=== PATIENT | male | born 1950 | race Caucasian/White ===

== ENCOUNTER 2017-12-04 14:02 | Observation (INO) | payer OTHER ==
[~2017-12-04] VITALS: Ht 180.3 cm; Wt 89.7 kg
--- OUTSIDE RECORDS SUMMARY | ~2017-12-04 | XMS | Clinical Summary ---
Demographics + + + | Address | [address] | | | [place] [address] | + + + | Home Phone | | + + + | Preferred Language | Unknown | + + + | Marital Status | | + + + | Oriental Orthodox Affiliation | Unknown | + + + | Race | Unknown | + + + | Ethnic Group | Unknown | + + + Author + + + | Author | [facility] | | | and [place] | + + + | Organization | [facility] | | | and [place] | [...] Team Providers + +------+ + | Care Cloud Engineer Name | Role | Phone | + [...]
--- OUTSIDE RECORDS SUMMARY | ~2017-12-04 | XMS | Clinical Summary ---
Demographics + + + | Address | [address] | | | [place] [address] | + + + | Home Phone | | + + + | Preferred Language | Unknown | + + + | Marital Status | | + + + | Mandaen Affiliation | Unknown | + + + | Race | Unknown | + + + | Ethnic Group | Unknown | + + + Author + + + | Author | [facility] | + + + | Organization | [facility] | + + + | Address | Unknown | + + + | Phone | Unavailable | + + + Support + + + + + | Name | Relationship | Address | Phone | + + + + + | Vanesa Springer | ECON | [address] | | | | | [place] [address] | | + + + + + Care Team Providers + +------+ + | Care Freight Coordinator Name | Role | Phone | + +------+ + | Mayra Merrill MD | PP | | + +------+ + Allergies + + + + + + | Active Allergy | Reactions | Severity | Noted | Comments | | | | | Date | | + + + + + + | Codeine | Other (See Comments) | Medium | 06/15/20 | Pt states makes | | | | | 17 | him feel flushed and | | | | | | warm | + + + + + + Current Medications + + +-------+---------+------+------+-------+ | Prescription | Sig. | Disp. | Refills | Star | End | Statu | | | | | | t | Date | s | | | | | | Date | | | + + +-------+---------+------+------+-------+ | | Inhale 2 puffs into | | | | | Activ | | budesonide-formotero | the lungs 2 (two) | | | | | e | | l (SYMBICORT) 80-4.5 | times daily. | | | | | | | MCG/ACT | | | | | | | | inhalerIndications: | | | | | | | | Chronic Obstructive | | | | | | | | Pulmonary Disease | | | | | | | + + +-------+---------+------+------+-------+ | traZODone | Take 100 mg by mouth | | | | | Activ | | (DESYREL) 100 MG | nightly. | | | | | e | | tabletIndications: | | | | | | | | PTSD/sleep | | | | | | | + + +-------+---------+------+------+-------+ | sertraline | Take 100 mg by mouth | | | | | Activ | | (ZOLOFT) 100 MG | nightly. | | | | | e | | tabletIndications: | | | | | | | | Posttraumatic Stress | | | | | | | | Disorder | | | | | | | + + +-------+---------+------+------+-------+ | diphenhydrAMINE | Take 50 mg by mouth | | | | | Activ | | (BENADRYL) 50 MG | nightly. | | | | | e | | capsule | | | | | | | + + +-------+---------+------+------+-------+ | divalproex | Take 500 mg by mouth | | | | | Activ | | (DEPAKOTE) 500 MG 24 | nightly. | | | | | e | | hr tablet | | | | | | | + + +-------+---------+------+------+-------+ Active Problems + + + | Problem | Noted Date | + + + | Subcutaneous emphysema (HCC) | 06/24/2017 | + + + | Change in mental status | 06/21/2017 | + + + | COPD exacerbation (HCC) | 06/21/2017 | + + + | Acute respiratory failure with hypoxia (HCC) | 06/16/2017 | + + + | Panlobular emphysema (HCC) | 06/15/2017 | + + + | Cigarette smoker | 06/15/2017 | + + + | Pyrexia of unknown origin following delivery | 06/15/2017 | + + + | PTSD (post-traumatic stress disorder) | 06/15/2017 | + + + | Subcutaneous emphysema (HCC) | 06/15/2017 | + + + | Contusion of flank and back, subsequent encounter | 06/15/2017 | + + + | Closed fracture of multiple ribs | 06/15/2017 | + + + Resolved Problems + + + + | Problem | Noted | Resolved | | | Date | Date | + + + + | Traumatic pneumothorax | 06/15/20 | | | | 17 | 7 | + + + + | Chest tube in place | 06/15/20 | | | | 17 | 7 | + + + + Immunizations + + + + | Name | Dates Previously Given | Next Due | + + + + | Influenza, | 06/16/2017 | | | Injectable, | | | | Quadrivalent, | | | | Preservative Free | | | + + + + Social History + +-------+ +--------+ + | Tobacco Use | Types | Packs/Day | Years | Date | | | | | Used | | + +-------+ +--------+ + | Former Smoker | | 1.5 | 49 | Quit: 06/12/2017 | + +-------+ +--------+ + + +---+---+ + | Smokeless Tobacco: | | | Quit: | | Former User | | | 06/12/20 | | | | | 17 | + +---+---+ + + + | Tobacco Cessation: Ready to Quit: No; Counseling Given: Yes | + + + + +---------+ + | Alcohol Use | Drinks/We | oz/Week | Comments | | | ek | | | + + +---------+ + | Yes | | | once a while | + + +---------+ + + + + | Sex Assigned at | Date Recorded | | | | + + + | Not on file | | + + + Last Filed Vital Signs + + + + | Vital Sign | Reading | Time Taken | + + + + | Blood Pressure | 121/61 | 07/01/2017 8:48 AM PST | + + + + | Pulse | 75 | 07/01/2017 8:48 AM PST | + + + + | Temperature | 36.3 C (97.4 F) | 07/01/2017 8:48 AM PST | + + + + | Respiratory Rate | 16 | 2017 8:00 AM PST | + + + + | Oxygen Saturation | 96% | 07/01/2017 8:48 AM PST | + + + + | Inhaled Oxygen | - | - | | Concentration | | | + + + + | Weight | 86 kg (189 lb 8 oz) | 07/01/2017 8:48 AM PST | + + + + | Height | 182.9 cm (6') | 07/01/2017 8:48 AM PST | + + + + | Body Mass Index | 25.7 | 07/01/2017 8:48 AM PST | + + + + Plan of Treatment + + + + + | Health Maintenance | Due Date | Last Done | Comments | + + + + + | Vaccine: | | | | | Dtap/Tdap/Td (1 - | 8 | | | | Tdap) | | | | + + + + + | Colon Cancer | | | | | Screening | 9 | | | | (Colonoscopy) | | | | + + + + + | Vaccine: | | | | | Pneumococcal 65+ | 4 | | | | Low/Medium Risk (1 | | | | | of 2 - PCV13) | | | | + + + + + | Vaccine: Influenza | Completed | 06/16/2017 | | + + + + + Results Not on filefrom Last 3 Months Insurance + +--------+ +------+ + + | Payer | Benefi | Subscriber | Type | Phone | Address | | | t Plan | ID | | | | | | / | | | | | | | Group | | | | | + +--------+ +------+ + + | [employer] | V[employer] | xxxxxxxxx | | [phone] [employer] [id number] | | ADMINISTRATION | [place] | | [phone] | | | [address] | | | | [address] [place] | | | [place] | | | [phone] | | | ON | | | | | + +--------+ +------+ + + + +--------+ +--------+ + + | Guarantor Name | Accoun | Relation to | Date | Phone | Billing Address | | | t Type | Patient | of | | | | | | | | | | + +--------+ +--------+ + + | GUANACO SPRINGER | Tamara | Self | [birth year] | Home: | [address] | | | ns | | 1950 | [phone] | [place] | | | Admini | | | [phone] | | | strati | | | | | | | on | | | | | + +--------+ +--------+ + +"
--- OUTSIDE RECORDS SUMMARY | ~2017-12-04 | XMS | Clinical Summary ---
Demographics + + + | Address | [address] | | | [place] [address] | + + + | Home Phone | | + + + | Preferred Language | Unknown | + + + | Marital Status | | + + + | Samaritan Affiliation | Unknown | + + + | Race | Unknown | + + + | Ethnic Group | Unknown | + + + Author + + + | Author | [facility] | | | and [place] | + + + | Organization | [facility] | | | and [place] [...] Team Providers + +------+ + | Care Actuarial Science Professor Name | Role | Phone | + [...]
--- OUTSIDE RECORDS SUMMARY | ~2017-12-04 | XMS | Clinical Summary ---
Demographics + + + | Address | [address] | | | [place] [address] | + + + | Home Phone | | + + + | Preferred Language | Unknown | + + + | Marital Status | | + + + | Restoration Affiliation | Unknown | + + + | Race | Unknown | + + + | Ethnic Group | Unknown | + + + Author + + + | Author | [facility] | + + + | Organization | [facility] | + + + | Address | Unknown | + + + | Phone | Unavailable | + + + Support + + + + + | Name | Relationship | Address | Phone | + + + + + | Vanesa Springer | ECON | [address] | | | | | [place] [address] | | + + + + + Care Team Providers + +------+ + | Care Retirement Assistant Name | Role | Phone | + [...] | | [place] | | | | [address] | | | ON | | | [...] | Self | [birth year] | Home: | [address] | | | ns | | 1950 | [phone] | [place] | | | Admin[place] | | | [phone] | [phone] | | | strati | | | | | | | on | | | | | + +--------+ +--------+ + +"
--- OUTSIDE RECORDS SUMMARY | ~2017-12-04 | XMS | Clinical Summary ---
Demographics + + + | Address | [address] | | | [place] [address] | + + + | Home Phone | | + + + | Preferred Language | Unknown | + + + | Marital Status | Single | + + + | Jew Affiliation | Unknown | + + + [...] Team Providers + +------+ + | Care Preparation Room Worker Name | Role | Phone | + +------+ + | Unknown | PP | Unavailable | + +------+ + Source Comments ELO is fully live on both [facility] Ambulatory and [facility] InPatient.[facility] Allergies Not on File Current Medications Not [...]
--- OUTSIDE RECORDS SUMMARY | ~2017-12-04 | XMS | Clinical Summary ---
Demographics + + + | Address | [address] | | | [place] [address] | + + + | Home Phone | | + + + | Preferred Language | Unknown | + + + | Marital Status | Single | + + + | Advent Affiliation | Unknown | + + + [...] Team Providers + +------+ + | Care Outside Collector Name | Role | Phone | + +------+ + | Unknown | PP | Unavailable | + +------+ + Source Comments ELO is fully live on both [facility] Ambulatory and [facility] InPatient.[facility] Allergies Not on File Current [...]
[2017-12-04] MEDS ORDERED: DEPAKOTE500 MG PO (14:22)
[2017-12-04] MEDS ORDERED: SYMBICORT 80-10.2 GM INH (14:22)
[2017-12-04] MEDS ORDERED: DIPHENHYDRAMINE50 M1 PO (14:23)
[2017-12-04] MEDS ORDERED: TRAZODONE HCL100 MG PO (14:23)
[2017-12-04] MEDS ORDERED: MELOXICAM15 MG PO (14:24)
[2017-12-04] MEDS ORDERED: SERTRALINE HCL100 MG PO (14:24)
--- OUTSIDE RECORDS SUMMARY | 2017-12-04 15:10 | XMS | Clinical Summary ---
Demographics + + + | Address | [address] | | | [place] [address] | + + + | Home Phone | | + + + | Preferred Language | Unknown | + + + | Marital Status | Single | + + + | Samaritan Affiliation | Unknown | + + + | Race | Unknown | + + + | Ethnic Group | Other Race | + + + Author + + + | Author | NON REVENUE LOCATIONS | + + + | Organization | NON REVENUE LOCATIONS | + + + | Address | Unknown | + + + | Phone | Unavailable | + + + Care Team Providers + +------+ + | Care Woods Warden Name | Role | Phone | + +------+ + | Unknown | PP | Unavailable | + +------+ + Source Comments ELO is fully live on both [facility] Ambulatory and [facility] InPatient.[facility] Allergies Not on File Current Medications Not on file Active Problems Not on file Social History + +-------+ +--------+------+ | Tobacco Use | Types | Packs/Day | Years | Date | | | | | Used | | + +-------+ +--------+------+ | Never Assessed | | | | | + +-------+ +--------+------+ + + + | Sex Assigned at | Date Recorded | | | | + + + | Not on file | | + + + Plan of Treatment + + + + + | Health Maintenance | Due Date | Last Done | Comments | + + + + + | INFLUENZA VACCINE | | | | | (FLU SHOT) | 8 | | | + + + + + Results Not on filefrom Last 3 Months"
--- OUTSIDE RECORDS SUMMARY | 2017-12-04 15:10 | XMS | Clinical Summary ---
Demographics + + + | Address | [address] | | | [place] [address] | + + + | Home Phone | | + + + | Preferred Language | Unknown | + + + | Marital Status | | + + + | Christian Affiliation | Unknown | + + + | Race | Unknown | + + + | Ethnic Group | Unknown | + + + Author + + + | Author | [facility] | | | and [place] | + + + | Organization | [facility] | | | and [place] | + + + | Address | Unknown | + + + | Phone | Unavailable | + + + Support + + +---------+ + | Name | Relationship | Address | Phone | + + +---------+ + | Peace Solomon | ECON | Unknown | | + + +---------+ + Care Team Providers + +------+ + | Care Assistant Brand Manager Name | Role | Phone | + +------+ + PP | Unavailable | + +------+ + Allergies Not on File Current Medications Not [...] | + + + + + | Hepatitis C | | | | | Screening | 9 | | | + + + + + | Vaccine: | | | | | Dtap/Tdap/Td (1 - | 8 | | | | Tdap) | | | | + + + + + | COLON CANCER | | | | | SCREENING | 9 | | | | (COLONOSCOPY EVERY | | | | | 10 YEARS 50-75) | | | | + + + + + | Vaccine: | | | | | Pneumococcal 65+ | 4 | | | | Low/Medium Risk (1 | | | | | of 2 - PCV13) | | | | + + + + + | Vaccine: Influenza | | | | | (Season Ended) | 8 | | | + + + + + Results Not on filefrom Last 3 Months"
--- OUTSIDE RECORDS SUMMARY | 2017-12-04 15:10 | XMS | Clinical Summary ---
Demographics + + + | Address | [address] | | | [place] [address] | + + + | Home Phone | | + + + | Preferred Language | Unknown | + + + | Marital Status | | + + + | Restorationist Affiliation | Unknown | + + + | Race | Unknown | + + + | Ethnic Group | Unknown | + + + Author + + + | Author | [facility] | | | and [place] | + + + | Organization | [facility] | | | and [place] | [...] Team Providers + +------+ + | Care Hang Gliding Instructor Name | Role | Phone | + [...]
--- OUTSIDE RECORDS SUMMARY | 2017-12-04 15:10 | XMS | Clinical Summary ---
Demographics + + + | Address | [address] | | | [place] [address] | + + + | Home Phone | | + + + | Preferred Language | Unknown | + + + | Marital Status | Single | + + + | Druze Affiliation | Unknown | + + + [...] Team Providers + +------+ + | Care Sports Broadcasting Internship Name | Role | Phone | + +------+ + | Unknown | PP | Unavailable | + +------+ + Source Comments ELO is fully live on both [facility] Ambulatory and [facility] InPatient.[facility] Allergies Not on File Current Medications Not [...]
--- NOTE | 2017-12-04 18:41 | NUR ---
PATIENT ED ADMIT. ASSISTED OVER TO THE BED FROM STRETCH. PATIENT VERY PAINFUL WHEN MOVING. BANDAID TO L PINKY FINGER AND L WRIST. ABRASION TO L LOWER HIP. PATIENT VITALS TAKEN. ASSISTED INTO BED WITH ASSIST. ASSESSMENT COMPLETE. IN ROOM AND HIS PLANNING ON TAKING ALL PATIENT ITEMS HOME WITH HER. DR. MUHAMMAD JUST GOT TO THE FLOOR FOR ASSESSMENT.
--- NOTE | 2017-12-04 19:05 | NUR ---
shift report received. patient's at bedside. he reports pain 5/10 mostly in his right shoulder. iv fluids infusing per order. patient is aaox3. no needs at this time.
--- NOTE | 2017-12-04 19:47 | NUR ---
REPORT GIVEN TO DARCI. UPDATED ON PATIENTS PLAN OF CARE.
--- NOTE | 2017-12-04 20:10 | NUR ---
Charge Nurse Rounding note: Pt awake, watching tv, no c/o pain at this time. Family in room
--- NOTE | 2017-12-04 21:00 | NUR ---
EVENING MEDS GIVEN PER ORDER. NORCO PROVIDED FOR PAIN 7/10 IN RIGHT SHOULDER AND PAIN. PATIENT STATES RIGHT SIDE/RIBS ONLY HURT WITH MOVEMENT. LUNG SOUNDS ARE HEARD IN ALL LOBES, EXPIRTORY WHEEZE HEARD THROUGHOUT. RT IN FOR NEB TREATMENT. O2 SAT 88%, PLACED ON 2L NC FOR THE NIGHT. CONTINUOUS PULSE OX. IV FLUIDS INFUSING PER ORDER. DRESSING ON LEFT WRIST AND HAND ARE INTACT, DRIED BLOOD NOTED. PATIENT DENIES ANY NEEDS AT THIS TIME.
--- NOTE | 2017-12-04 23:00 | NUR ---
PATIENT APPEARS TO BE SLEEPING SOUNDLY. RR 19. O2 SAT 94% ON 2L NC.
--- NOTE | 2017-12-05 01:53 | NUR ---
VITALS DONE AND CHARTED. PT SAYS HE DOES NOT HAVE TO PEE YET. I INFORMED HIS NURSE DARCI. BEDSIDE TABLE AND CALL LIGHT WITHIN REACH. PT NEEDS NOTHING ELSE AT THIS TIME.
--- NOTE | 2017-12-05 02:00 | NUR ---
PATIENT APPEARED TO BE SLEEPING. WOKE EASILY TO VOICE. HE HAD REMOVED HIS NC, O2 SAT WAS 90%. REPLACED 1L NC AND O2 SAT 95%. PATIENT IS SHALLOW BREATHING AND REPORTS PAIN 7/10. PRN NORCO PROVIDED. PATIENT HAS NOT USED THE BATHROOM SINCE BEFORE GOING TO SLEEP. ENCOURAGED HIM TO TRY AND USE THE URNAL AND LET STAFF KNOW WHEN HE HAS OR IF HE NEEDS HELP. LUNG SOUNDS ARE CLEAR IN UPPER LOBED, DIMINISHED IN THE LEFT RIGHT LOWER LOBE. CLEAR IN LEFT LOWER LOBE. PATIENT ABLE TO TURN SLIGHTLY TO LEFT SIDE TO ALLOW RN TO ASSESS HIS RIGHT SIDE AND LISTEN FOR LUNG SOUNDS. BREATHING REMAINS VERY SHALLOW. ENCOURAGED HIM TO TAKE STEADY DEEP BREATHS BUT HE DECLINES.
--- NOTE | 2017-12-05 04:30 | NUR ---
PATIENT HAD REMOVED NC, O2 SAT 85% ON ROOM AIR WHILE SLEEPING. 2L NC REPLACE. O2 SAT 94%. PATIENT'S HOB ELEVATED. BREATHING SHALLOW BUT EVEN.
--- NOTE | 2017-12-05 06:15 | CONS ---
[facility] [address], [place] [address] Signed DATE OF CONSULTATION: 12/04/2017 CHIEF COMPLAINT: Fall from ladder. HISTORY OF PRESENT ILLNESS: Guanaco is a 67-year-old gentleman, who has been trying to build a 1600 score foot house the last several months. He actually fell in June last year and ended up with right rib fractures, 7 through 12 and went to [facility] initially and was transferred over to [facility], where he was seen by their cardiothoracic surgeon. He ended up with 2 chest tubes and eventually was discharged to home. He went back a week later with a fever, spent another week in the hospital and seemed to do fine, they sent him back home. He has been out on the ladder today and he fell 8-10 feet to the ground, but says he did not have loss of consciousness before he fell. Of course, he had right shoulder and right rib pain after falling. His said there was some kind of demonstration at [facility] on the news today, so she just put him in the car and drove him almost an hour to our hospital for evaluation. In the emergency room, he has been thoroughly evaluated and found to have right rib fractures 2 through 8 with a moderate pneumothorax on the right more on the medial side of the lung with a grade 3 right AC separation and then a laceration of his left arm and his left fifth digit. Otherwise, he has been hemodynamically stable and asking for food. I have been asked to admit him as a general surgeon on-call. PAST MEDICAL HISTORY: Right rib fractures 7 through 12 in June 2017, treated at [facility] and [facility]; posttraumatic stress disorder; left upper extremity fracture; and COPD. PAST SURGICAL HISTORY: Right chest tube x2, cervical plates and screws and left upper extremity fracture repair. SOCIAL HISTORY: He does not smoke anymore, but he has an occasional drink. He is . He and his live over in [place]. He goes to the [facility] in [place]. His is Peace at [phone]. He prefers the [facility] in [place]. FAMILY HISTORY: Mom wrecked the car and had some type of a closed head injury. Dad had COPD and bladder cancer. REVIEW OF SYSTEMS: Guanaco had 10 systems reviewed and there are no new findings. Electronically Signed By: YANNICK MUHAMMAD MD 12/05/17 0615 PATIENT NAME: GUANACO SPRINGER CONSULTATION DATE OF : 48 REPORT #: [id number] PHYSICIAN: YANNICK MUHAMMAD MD PCP: OTHER PCP REPORT IS CONFIDENTIAL AND NOT TO BE RELEASED WITHOUT AUTHORIZATION [facility] [address], [place] [address] Signed ALLERGIES: Codeine. MEDICATIONS: Symbicort, Depakote, Benadryl, trazodone, meloxicam, and sertraline. PHYSICAL EXAMINATION: VITAL SIGNS: Blood pressure 150/77, heart rate 61, respiratory rate 20, temperature is 97.5, and he is 96% on room air. He is 5 feet 11 inches and 89 kg. GENERAL: Guanaco is a 67-year-old gentleman who is lying supine semi-recumbent in his hospital bed. His is in the room. He appears alert, awake, and interactive. He has no increased work of breathing or shortness of breath, although he is splinting a little on the right chest wall. Consequently, he has decreased breath sounds on the right with some rhonchi, but the left unremarkable. HEART: Regular rate and rhythm. ABDOMEN: Soft, nontender. EXTREMITIES: I did not undercover his left arm and his left 5th digit has been wrapped. I did not undercover that currently. LABORATORY DATA: White blood cell count 11.9, hemoglobin 12, mean cell volume 77. BUN 22, creatinine 1.26. Liver function tests negative. Albumin is 4.5. RADIOGRAPHIC STUDIES: The radiographic studies were reviewed along with the reports and the CT scan of the chest, abdomen, and pelvis of course shows the moderate right pneumothorax with subcutaneous emphysema, right rib fractures, 2 through 8 and what probably is some fibrosis in the right lung. Chest x-ray shows the right rib fractures, no visible pneumothorax and again, this possible fibrosis or contusion in the right lung and of course the right AC separation grade 3. The CT scan of the head was unremarkable. ASSESSMENT AND PLAN: Guanaco is a 67-year-old gentleman, who presents after a fall with right rib fractures 2 through 8 and [id number] right pneumothorax. He is splinting a little, but he is doing fine otherwise. We are going to hold off on a chest tube. He also has a grade 3 right AC separation, will need to consult Orthopedics and then tomorrow, we will have to look at his left arm and left 5th digit lacerations. We will repeat a chest x-ray in the morning. Start him on clear liquids and his chronic medications. He and his have expressed understanding and agreed the above plan. Electronically Signed By: YANNICK MUHAMMAD MD 12/05/17 0615 PATIENT NAME: GUANACO SPRINGER CONSULTATION DATE OF : 48 REPORT #: [id number] PHYSICIAN: YANNICK MUHAMMAD MD PCP: OTHER PCP REPORT IS CONFIDENTIAL AND NOT TO BE RELEASED WITHOUT AUTHORIZATION [facility] [address], [place] [address] Signed MD KELLY Barrera/TUYETL /[id number] cc: [facility] [place], [place] Copies: ~ Electronically Signed By: YANNICK MUHAMMAD MD 12/05/17 0615 PATIENT NAME: GUANACO SPRINGER CONSULTATION DATE OF : 48 REPORT #: [id number] PHYSICIAN: YANNICK MUHAMMAD MD PCP: OTHER PCP REPORT IS CONFIDENTIAL AND NOT TO BE RELEASED WITHOUT AUTHORIZATION
--- NOTE | 2017-12-05 06:22 | NUR ---
PATIENT SLEPT WELL THROGUHOUT THE NIGHT. PAIN CONTROLLED WITH PRN NORCO X3. PAIN MOSTLY IN RIGHT SHOULDER AND BACK. RIBS HURT WITH MOVEMENT. SHALLOW BREATHING. 2L NC AT NIGHT. LUNG SOUNDS DIMINISHED IN THE BASES BILATERALLY, MORE ON RIGHT SIDE. DRESSING ON LEFT ARM/HAND ARE INTACT. PATIENT DID NOT NEED TO URINATE DURING THE NIGHT. STATED "THATS NORMAL FROM ME". ENCOURAGED TO TRY THIS AM. AWARE.
--- NOTE | 2017-12-05 06:34 | NUR ---
PATIENT REPORTS PAIN 7/10. HE APPEARS VERY PAINFUL. PRN NORCO PROVIDED. LUNG SOUNDS CLEAR IN UPPER LOBES. DIMINISHED IN THE BASES. VERY SHALLOW BREATHING. PATIENT PERFORMED IS X6, ONLY REACHING 500 BUT ENCOURAGED PATIENT TO DEEP BREATH THROUGH THE PAIN. PATIENT ABLE TO URINATE 330MLS, URINE STRAW YELLOW WITH NO SEDIMENT. IV FLUIDS INFUSING, SITE WNL.
--- NOTE | 2017-12-05 06:49 | NUR ---
AGREES THAT PATIENT CAN HAVE CREAMER IN HIS COFFEE PER PATIENT REQUEST. PATIENT MUST GO DOWN FOR 2-VIEW CHEST X-RAY. 1MG IV DILAUDID PROVIDED. PATIENT ABLE TO MOVE UP TO BEDSIDE AND AFTER A FEW MINS OF RECOVERING HE WAS ABLE TO MOVE OVER TO . PATIENT IS UPSET AND FRUSTERATED WITH THE PAIN BUT STATES "I JUST NEED A MIN".
--- NOTE | 2017-12-05 07:20 | EKG ---
[facility] [address] [place], [place] [address] Signed Normal sinus rhythm Normal ECG No previous ECGs available Confirmed by IRMA ALFORD MD ([id number]) on 12/05/2017 7:20:13 AM Electronically Signed By: IRMA ALFORD MD 12/05/17 0720 PATIENT NAME: GUANACO SPRINGER Electrocardiogram DATE OF : 48 PHYSICIAN: IRMA ALFORD MD REPORT #: [id number] REPORT IS CONFIDENTIAL AND NOT TO BE RELEASED WITHOUT AUTHORIZATION
--- NOTE | 2017-12-05 08:30 | NUR ---
PATIENT GIVEN MORNING MEDICATION. RT IN ROOM GIVING NEB TREATMENT.
--- NOTE | 2017-12-05 09:33 | NUR ---
PATIENT SAT UP IN BED. CHAO CURRENTLY RATING PAIN 5/10. PATIENT IS CURRENTLY DROWSY. ANSWERING QUESTIONS BUT CLOSING HIS EYES AND NOT FINISHING CONVERSATION. PATIENT DID GET DILAUDID 1 MG BEFORE CHEST X-RAY. PATEINT STATING HE FEELS LIKE IT IS DUE TO MEDICATION. PATIENT PLACED ON 2 L PER NC TO MAINTAIN SATURATION OF 93 PERCENT. PATIENT CONTINUES TO BE ON CONT PULSE OX. PATIENT ENCOURAGED TO VOID. HAS HAD NO UOP ON DAY SHIFT THIS MORNING.
--- NOTE | 2017-12-05 10:07 | NUR ---
PATIENT TOLERATED CLEAR LIQUID TRAY. REMAINS DROWSY. PATIENT STATED AT THIS TIME HE DOES NOT FEEL LIKE HE HAS TO VOID. AWAITING CHEST XRAY AT THIS TIME.
--- NOTE | 2017-12-05 10:30 | NUR ---
SPOKE WITH PATIENT AND IN ROOM. DISCUSSED DISCHARGE OPTIONS. STATES SHE HOPES HE STAYS LONG ENOUGH TO GO HOME AND STAY THERE. SHE STATES WHEN HE FELL LAST TIME AND WAS DISCHARGED THEY ENDED UP IN ED THREE TIMES AFTER DISCHARGE AND ADMITTED AGAIN ONCE. SHE STATES HE WAS ALOT HARDER TO TAKE CARE OF AT HOME THAN SHE THOUGHT BECAUSE HE WASN'T ABLE TO GET AROUND WELL AT ALL. SHE STATES THAT IF HE NEEDS REHAB FIRST, THEY WANT TO PURSUE THAT OPTION. WE DISCUSSED THIS AT LENGTH. I ALSO DISCUSSED WITH PATIENT IMPORTANCE OF IS WORK DUE TO HIGH RISK OF PNEUMONIA. WE DISCUSSED PAIN CONTROL AND BOWEL MOVEMENTS. PATIENT SEEMS TO UNDERSTAND ALL ISSUES. VERY SUPPORTIVE FAMILY.
--- NOTE | 2017-12-05 11:39 | NUR ---
assisted patient to chair with two assist. pt was painful but able to tolerated. clear liquid tray brought to room. family at bedside. patient remains sating well with 2l per nc. shalini continue to monitor.
--- NOTE | 2017-12-05 12:26 | NUR ---
PATIENT GIVEN NEB PER RT. PATIENT DOING WELL SITTING IN CHAIR. CONTINUE TOSAT 92 PERCENT ON 2 L PER NC. PAIN IMPROVED WITH THE OTHER NORCO.
--- NOTE | 2017-12-05 12:31 | NUR ---
UPDATED DR. MUHAMMAD THAT PATINET HAS NOT VOIDED AT THIS TIME FOR ME ON SHIFT. NO NEW ORDERS AT THIS TIME. CHEST XRAY BACK.
--- NOTE | 2017-12-05 13:46 | NUR ---
WASHED LACERATION OF PINKY FINGER AND WRIST WITH SOAP AND WATER. NEW STERI STRIPS APPLIED TO WRIST. SLING PLACED ON R ARM. PATIENT TOLERATING SITTING UP IN CHAIR. UPDATED .
--- NOTE | 2017-12-05 13:53 | NUR ---
PT SITTING IN CHAIR, R ARM IN SLING. TRIED TO SHAKE HANDS, RIGHT L HAND HAD SEVERAL LACERATIONS MAKING IT DIFFICULT. PT ALERT AND ORIENTED-SEEMED TO DESIRE VISIT. 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 THIS TIME HE SAYS HE HATES TO THINK HE MAY NEED TO ASK FOR HELP. PT THANKED ME FOR COMING IN, EXTENDED A BLESSING AND WILL FOLLOW NEEDED
[2017-12-05] MEDS ORDERED: VENTOLIN HFA18 GM INH (14:29)
[2017-12-05] MEDS ORDERED: ADVIL200 M1 PO (14:31)
--- NOTE | 2017-12-05 14:32 | NUR ---
MED REC COMPLETE WITH INTERVIEW. PATIENT FILLS AT THE [facility] [place] AND [facility] IN [place].
--- NOTE | 2017-12-05 15:52 | NUR ---
PAIN MEDICATION ULTRAM GIVEN. PATINET EDUCATION ON PAIN MEDICATION. REGULAR DIET. PATINET TOLERATING WELL. NO NAUSEA. PATIENT SITTING UP IN CHAIR WITH LEGS UP. SLING IN PLACE ON R ARM. NEW IV PLACED PER PATIENTS REQUEST.
--- NOTE | 2017-12-05 16:00 | NUR ---
PATIENT WAS ABLE TO AMBULATE FROM BED TO CHAIR. NEEDING NORCO AND NEW MEDICATION ULTRAM FOR PAIN MANAGEMENT. PAITENT CXRAY SHOWED NO CHANGE. WILL REPEAT CXRAY IN AM. NEW IV SITE. PATIENT IV FLUIDS TITRATE 50ML/HR. UPDATED DR. SABINA LUCAS TO PATIENT HAVING MINIMAL UOP. NO NEW ORDERS. PATIENT ASKED IF WE COULD TRY AND TITRATE PATIENT OFF OXYGEN. PATIENT WAS UNABLE TO TITRATE TO RA. NEEDING 2 L PER NC. ADVANCED TO REGULAR DIET. TOLERATING REGULAR DIET WELL.
--- NOTE | 2017-12-05 18:20 | NUR ---
PATIENT MOVED FROM CHAIR TO BSC. PATIENT WAS ABLE TO VOID 400MLS. PATIENT ASSISTED TO BED. COUGHING UP 2 QUARTER SIZE BLOOD CLOTS. CALLED DR. MUHAMMAD FOR UPDATE ON PATIENT. NO NEW ORDERS
--- NOTE | 2017-12-05 19:20 | NUR ---
shift report receied. kateryna resting in bed talking on phone with his . o2 sat 92% on 1L NC.
--- NOTE | 2017-12-05 21:30 | NUR ---
EVENING MEDS GIVEN PER ORDER. PATIENT REPORTS PAIN THAT "GETS WORSE AND BETTER AT RANDOM" BUT IS 5/10 RIGHT NOW. SHOULDER FEELS BETTER IN SLING. PATIENT REPORTS A VERY DIFFICULT DAY WITH PAIN CONTROL AND COUGHING UP BLOOD CLOTS. TOLERATING 1L NC AT THIS TIME. ATTEMPTING TO COUGH MORE AND FEELS MORE SECREATIONS THAT NEED MOBILIZED. ENCOURAGE ORAL INTAKE AND IS USE. JUDIE SOUNDS ARE CLEAR, BUT DIMINISHED IN BASES BILATERALLY. WOUNDS ON LEFT HAND ARE CLEANED AND OPEN TO AIR. LEFT WRIST IS COVERED WITH GAUZE AND COBAN. WHEN DRESSING REMOVED A SMALL TO MODERATE AMOUNT OF BLOOD IS ON GAUZE. AREA CLEANED WITH SOAP AND WATER, FLUSHED WELL AND COVERED WITH NON ADHERENT DRESSING. IV FLUIDS INFUSING PER ORDER, SITE WNL. CMS INTACT. TOLERATING REGULAR DIET, GOOD APPETITE. SCDS IN PLACE. CONTINUOUS PULSE OX IN USE. ENCOURAGED PATIENT TO USE URNAL, URINE OUTPUT REMAINS LOW.
--- NOTE | 2017-12-05 22:15 | NUR ---
VITALS WNL. PATIENT ATTEMPTING TO SLEEP NOW. WAS ABLE TO VOID 100MLS IN THE URNAL. NO OTHER NEEDS AT THIS TIME.
--- NOTE | 2017-12-05 23:01 | NUR ---
PT IN BED SLEEPING. PM CARE. VITALS AND I AND O DONE
--- NOTE | 2017-12-06 00:30 | NUR ---
PATIENT APPEARS TO BE RESTING COMFORTABLY. RR 20. O2 SAT 93% ON 1L NC.
--- NOTE | 2017-12-06 00:36 | NUR ---
PT SLEEPING WILL CHECK BACK ON LATER
--- NOTE | 2017-12-06 03:00 | NUR ---
PATIENT REQUEST COFFEE WHICH WAS PROVIDED TO HIM. HE DECLINED PRN PAIN MEDS. 2L NC IN PLACE, O2 SAT 95%.
--- NOTE | 2017-12-06 05:15 | NUR ---
PATIENT APPEARS TO BE SLEEPING SOUNDLY. RR 18. O2 SAT 95% ON 2L NC.
--- NOTE | 2017-12-06 06:39 | NUR ---
PATIENT SLEPT WELL DURING THE NIGHT. PRN PAIN MEDS X1. 2L NC. SHALLOW BREATHING, DIMINISHED LUNG SOUNDS IN THE BASES. PRN NEBS. LACERATION ON LEFT WRIST WASHED AND COVERED WITH NON ADHEARANT DRESSING. SCDS IN USE. TOLERATING REGULAR DIET. MINIMAL OUTPUT. CHEST X RAY THIS AM.
--- NOTE | 2017-12-06 07:31 | NUR ---
REPORT RECEIVED FROM SHITAL BEJARANO. PT AWAKE AND SITTING IN BED. PT ON 2L O2 SAT 91-93% WHILE GETTING REPORT. GIVEN 2 TABS NORCO BY SHITAL BEJARANO. TELE DC'D AND PT ON SL PER ORDER THIS AM. DENIES OTHER NEEDS AT THIS TIME.
--- NOTE | 2017-12-06 08:50 | NUR ---
PT AWAKE SITTING IN BED. VOIDED INTO URINAL. RATED PAIN 5/10 IN RIGHT SIDE/BACK. PAIN WITH MOVEMENT. LUNGS CLEAR BUT DIM IN BASES. PT VERBALIZED UNDERSTANDING OF AM MEDS. SETUP WITH BREAKFAST. TOOK SLING OFF TO EAT. SCDS IN PLACE. DENIES OTHER NEEDS AT THIS TIME.
--- NOTE | 2017-12-06 10:08 | NUR ---
IN WITH PT. X-RAY ARRIVED.
--- NOTE | 2017-12-06 12:48 | NUR ---
AT 1142 GAVE PATIENT A SHOWER. I CHANGED THE LINENS. THE OTHER AGENT BASED MODELER AND I HELPED HIM IN THE SHOWER. PATIENT USED A WALKER. SLING ON HIS RIGHT ARM. PATIENT BACK IN HIS BED.
--- NOTE | 2017-12-06 14:41 | NUR ---
PT SITTING UP IN BED PLAYING HIS GAME. RATES PAIN 5/10 STATES HE IS PRETTY GOOD RIGHT NOW. REPORTS FEELING BETTER SINCE SHOWER
--- NOTE | 2017-12-06 17:20 | NUR ---
PT GIVEN ULTRAM AND 1 TAB OF NORCO FOR PAIN 5/10. PAIN WITH MOVEMENT. PT WINCES AND SHOUTS. URINE OUTPUT IMPROVED FROM YESTERDAY. PT DENIES OTHER NEEDS AT THIS TIME. SCDS IN PLACE. CALL LIGHT IN REACH.
--- NOTE | 2017-12-06 18:45 | NUR ---
PT BACK IN BED FROM SITTING ON EDGE. URINE OUTPUT INCREASING. PT REQUESTED COFFEE AND THEN NEEDED TO USE URINAL. STATES PAIN IS TOLERABLE AT THIS TIME. SLING IN PLACE. DENIES OTHER NEEDS AT THIS TIME.
--- NOTE | 2017-12-06 19:00 | NUR ---
RECEIVED REPORT FROM RN. PATIENT IS RESTING IN BED COMFORTABLY, BREATHING IS EVEN AND UNLABORED. O2 SATURATION IS 94% ON 1L O2 VIA NC. DENIES NEEDS AT THIS TIME. CALL LIGHT WITHIN REACH.
--- NOTE | 2017-12-06 19:45 | NUR ---
PATIENT RESTING IN BED, BREATHING IS EVEN AND UNLABORED. O2 SATURATION IS 93% ON 1L O2 VIA NC. REPORTS 4/10 PAIN IN LOWER BACK AND RIGHT SHOULDER, DENIES NEED FOR PAIN MEDICATION AT THIS TIME. SILVIA NEEDS. ASSESSMENT DONE. CALL LIGHT WITHIN REACH.
--- NOTE | 2017-12-06 21:00 | NUR ---
PATIENT RESTING IN BED, BREATHING IS EVEN AND UNLABORED. REPORTS 5/10 PAIN IN LOWER BACK AND RIGHT SHOULDER, SCHEDULED MEDICATIONS GIVEN, PRN NORCO GIVEN PER EMAR. PATIENT DENIES FURTHER NEEDS. CALL LIGHT WITHIN REACH.
--- NOTE | 2017-12-07 01:23 | NUR ---
PATIENT RESTING IN BED, BREATHING IS EVEN AND UNLABORED. O2 SATURATION IS 92% ON 1L O2 VIA NC. FLACC SCORE OF 0. CALL LIGHT WITHIN REACH.
--- NOTE | 2017-12-07 04:21 | NUR ---
PATIENT RESTING IN BED, BREATHING IS EVEN AND UNLABORED. O2 SATURATION IS 93% ON 1L O2 VIA NC. REPORTS 5/10 PAIN IN RIBS ON RIGHT SIDE, PRN NORCO GIVEN PER EMAR. DENIES FURTHER NEEDS. CALL LIGHT WITHIN REACH.
--- NOTE | 2017-12-07 06:00 | NUR ---
PATIENT'S NIGHT WAS UNEVENTFUL. HE HAS BEEN RESTING OFF AND ON THROUGHOUT SHIFT. VSS, URINE OUTPUT QS, PAIN WELL CONTROLLED. ALERT AND OREINTED, CALLS APPROPRIATELY. HAS EXW AT TIMES, REQUIRES 1L O2 WHILE SLEEPING. BOWEL TONES ARE ACTIVE, NO BM SINCE 12/03. WOUND TO LEFT WRIST CONTINUES TO HAVE SMALL AMOUNTS OF DRAINAGE, REMAINS COVERED. STITCHES TO RIGHT FINGER OPEN TO AIR, NO DRAINAGE. PATIENT TOLERATING SLING TO RIGHT ARM WELL. CMS INTACT. TOLERATING REGULAR DIET, 1PA/FWW. NO ACUTE CHANGES FROM BEGINNING OF SHIFT.
--- NOTE | 2017-12-07 06:00 | NUR ---
PATIENT RESTING IN BED, BREATHING IS EVEN AND UNLABORED. FLACC SCORE OF 0. O2 SATURATION IS 93% ON 1L O2 VIA NC. APPEARS TO BE ASLEEP. CALL LIGHT WITHIN REACH.
--- NOTE | 2017-12-07 07:01 | NUR ---
PATIENT RESTING IN BED, BREATHING IS EVEN AND UNLABORED. FLACC SCORE OF 0. CALL LIGHT WITHIN REACH.
--- NOTE | 2017-12-07 09:30 | NUR ---
PATIENT SITTING UP IN BED EATING BREAKFAST, AT BEDSIDE. PATIENT EAGER TO GO HOME TODAY.CHECKING ON DISCHARGE PLAN.
[2017-12-07] MEDS ORDERED: NORCO 10-325 T1 EACH PO (09:45)
--- NOTE | 2017-12-07 10:40 | NUR ---
PATIENT'S VS STABLE, IV DC'D INTACT, PATIENT GIVEN DC INSTRUCTIONS WELL SPOUSE. PATIENT WILL TRY TO GET A USED WALKER FROM HIS DAUGHTER. 1003 NORCO X2 GIVEN FOR PAIN WHICH MAY OCCUR ON TRANSPORT HOME. PATIENT TAKEN TO [facility]ONT DOORS OF HOSPITAL FOR DC BY NURSING.
--- NOTE | 2017-12-07 15:37 | DS ---
[facility] [address] [place], [place] [address] Signed ADMISSION DATE: 12/04/2017 DISCHARGE DATE: 12/07/2017 FINAL DIAGNOSES: 1. Right rib fractures 2 through 8. 2. Minimal to moderate right-sided pneumothorax. 3. Grade 3 right AC joint separation. 4. Laceration, left wrist. 5. Laceration, left fifth digit. PROCEDURES: 1. Multiple x-rays. 2. Suture repair lacerations per ER physician. HISTORY OF PRESENT ILLNESS: Mr. Springer is a 67-year-old gentleman, who has been trying to build a house since last fall with his . He fell last fall and broke about 2 ribs on the right and ended up at [facility] for several weeks. When he fell this time off his ladder, his brought him to our hospital here at [place]. He was evaluated in the emergency room and found to have the above injuries and I was asked to admit him as a surgeon on-call. HOSPITAL COURSE: Mr. Springer was admitted as above. We treated him conservatively. He has had good pain control. He is on a regular diet. He is up to 1500 mL on his incentive spirometer. He still has probably a little bit atelectasis in that right lung, but overall much better. The pneumothorax is not increased in size. At this point, we are going to be discharging him to home. He and his understand fully that he is at high risk for pneumonia and we are going to send him home with the incentive spirometer. DISCHARGE PLANS AND MEDICATIONS: Guanaco send home with [place] 10/325, 1 to 2 tablets p.o. q.4 to 6 hours p.r.n. pain. We will dispense 50 tablets with no refills. He will resume all his chronic medications. He will take the incentive spirometer home, but he already has one at home and he will use it daily and his goal is to get up to 2000. He is at 1500. We wanted him to perform his activities of daily living including walking up and down stairs and showering and bathing as needed. However, he should not lift over about 10 pounds. He is going to have a soft sling for his right AC joint separation and he will follow up with Dr. Gabe Galvin here in the next week or 2. Of course if his condition worsens at all, his is welcome to bring him back to the hospital. I will see him in my office in about 7 to 10 days and we will repeat the chest x-ray to follow up his pneumothorax. They have Electronically Signed By: YANNICK MUHAMMAD MD 12/07/17 1537 PATIENT NAME: GUANACO SPRINGER DISCHARGE SUMMARY DATE OF : 48 REPORT #: [id number] PHYSICIAN: YANNICK MUHAMMAD MD PCP: OTHER PCP REPORT IS CONFIDENTIAL AND NOT TO BE RELEASED WITHOUT AUTHORIZATION [facility] [address] [place] [id number] Signed expressed understanding and agreed to above plan. MD KELLY Barrera/TUYETL /[id number] cc: [facility] MD Yannick Fine MD Copies: RISA GALVIN MD, ANDREW L MD ~ Electronically Signed By: YANNICK MUHAMMAD MD 12/07/17 1537 PATIENT NAME: GUANACO SPRINGER DISCHARGE SUMMARY DATE OF : 48 REPORT #: [id number] PHYSICIAN: YANNICK MUHAMMAD MD PCP: OTHER PCP REPORT IS CONFIDENTIAL AND NOT TO BE RELEASED WITHOUT AUTHORIZATION
== END 2017-12-07 10:40 | disposition home or self-care (01) ==
LOC: ED 14:02 → MS 14:05 → ED 17:29 → MS 17:29
PROVIDERS: ADMIT Colon & Rectal Surgery
PROC: 0XQHXZZ Repair Left Wrist Region, External Approach (ICD-10-PCS; principal; 2017-12-04)
PROC: 0XQWXZZ Repair Left Little Finger, External Approach (ICD-10-PCS; 2017-12-04)
DX: S27.0XXA Traumatic pneumothorax, initial encounter (principal); S22.41XA Multiple fractures of ribs, right side, initial encounter for closed fracture; W11.XXXA Fall on and from ladder, initial encounter; Y93.H3 Activity, building and construction; Y92.61 Building [any] under construction as the place of occurrence of the external cause; S43.101A Unspecified dislocation of right acromioclavicular joint, initial encounter; S61.512A Laceration without foreign body of left wrist, initial encounter; S61.217A Laceration without foreign body of left little finger without damage to nail, initial encounter; J44.9 Chronic obstructive pulmonary disease, unspecified; F43.10 Post-traumatic stress disorder, unspecified; M19.90 Unspecified osteoarthritis, unspecified site; F17.200 Nicotine dependence, unspecified, uncomplicated; Z88.5 Allergy status to narcotic agent; Z79.1 Long term (current) use of non-steroidal anti-inflammatories (NSAID); Z79.51 Long term (current) use of inhaled steroids; Z79.899 Other long term (current) drug therapy
CPT/HCPCS: 36415; 70450; 71045; 71046; 71260; 73030; 74177; 80048; 80053; 82103; 82104; 85025; 90471; 90715; 93005; 93010; 94640; 94762; 96374; 96375; 96376; 97161; 99285; 99406; G0378; J1170; J2405; J7120; Q0163; Q9967

== ENCOUNTER 2020-08-03 16:00 | Emergency (ER) | payer OTHER ==
[~2020-08-03] VITALS: Ht 182.9 cm; Wt 92.1 kg
[~2020-08-03 16:00] MED LIST: ADVIL200 M1 PO; DEPAKOTE500 MG PO; DIPHENHYDRAMINE50 M1 PO; MELOXICAM15 MG PO; NORCO 10-325 T1 EACH PO; SERTRALINE HCL100 MG PO; SYMBICORT 80-10.2 GM INH; TRAZODONE HCL100 MG PO; VENTOLIN HFA18 GM INH
[2020-08-03] MEDS ORDERED: SPIRIVA RESPIMAT4 GM INH (16:18)
[2020-08-03] MEDS ORDERED: ARTHRITIS PAIN100 GM TOP (16:19)
[2020-08-03] MEDS ORDERED: CLARITIN10 M2 PO (16:19)
== END 2020-08-03 16:57 | disposition home or self-care (01) ==
LOC: ED 16:00
DX: S01.01XA Laceration without foreign body of scalp, initial encounter (principal); W22.8XXA Striking against or struck by other objects, initial encounter; F17.200 Nicotine dependence, unspecified, uncomplicated; Z88.5 Allergy status to narcotic agent; Z79.899 Other long term (current) drug therapy
CPT/HCPCS: 12005; 99282-25

== ENCOUNTER 2025-05-11 08:55 | Day surgery (SDC) | payer OTHER ==
[~2025-05-11] VITALS: Ht 182.9 cm; Wt 85.0 kg
[~2025-05-11 08:55] MED LIST changes: +ARTHRITIS PAIN100 GM TOP; +CLARITIN10 M2 PO; +IBLOOD GLUCOSE TEST STRIP 1 EA TEST VI PRN; +LACTATED RINGER'S 1,000 ML IV SCH; +LIDOCAINE HCL 1% 5 ML SDV INJ ONE; +SPIRIVA RESPIMAT4 GM INH; +STIOLTO RESPIMAT4 GM INH
[2025-05-11 09:09] VITALS: BP 137/77
[2025-05-11] MEDS ORDERED: LIDOCAINE HCL 2% 5 ML SDV ONE (10:01)
--- NOTE | 2025-05-11 11:55 | NUR ---
05/11/25 1155 Maria Isabel Alejo 1150-PATIENT ARRIVED TO PACU NONAROUSABLE ON 6L OXYMASK ORAL AIRWAY IN PLACE RR EVEN. ABDOMEN SOFT IVF INFUSING. SR HR 80'S.
[2025-05-11 12:22] VITALS: BP 133/75
--- NOTE | 2025-05-13 10:14 | PATH ---
[facility] [address] [facility] [place], [place] [address] Signed SPECIMEN(S): A SPLENIC FLEXURE COLON POLYP, 110 CM SPECIMEN(S): B PROXIMAL TRANSVERSE POLYP, 120 CM SPECIMEN(S): C COLON POLYP, 80 CM SPECIMEN(S): D COLON POLYP, 70 CM SPECIMEN SOURCE: A. SPLENIC FLEXURE COLON POLYP, 110 CM B. PROXIMAL TRANSVERSE POLYP, 120 CM C. COLON POLYP, 80 CM D. COLON POLYP, 70 CM CLINICAL HISTORY: Hematochezia, polyps/diverticuli FINAL PATHOLOGIC DIAGNOSIS: A. Splenic flexure polyp at 110 cm - Tubular adenoma. B. Proximal transverse polyp at 120 cm - Tubular adenoma. C. Colon polyp at 80 cm - Hyperplastic polyp. D. Colon polyp at 70 cm - Tubular adenoma. AMB MICROSCOPIC EXAMINATION: Histologic sections of all submitted blocks are examined by light microscopy. These findings, together with the gross examination, support the pathologic diagnosis. GROSS DESCRIPTION: A. The specimen, labeled and designated "Racheal, splenic flexure colon polyp, 110 cm," is received in formalin and consists of one nguyen soft tissue fragment, 0.4 cm. Entirely submitted in (A1). B. The specimen, labeled and designated "Racheal, proximal transverse polyp, 120 cm," is received in formalin and consists of one nguyen soft tissue fragment, 0.2 cm. Entirely submitted in (B1). C. The specimen, labeled and designated "Racheal, colon polyp, 80 cm," is received in formalin and consists of one nguyen soft tissue fragment, 0.3 cm. Entirely submitted in (C1). D. The specimen, labeled and designated "Racheal, colon polyp, 70 cm," is PATIENT NAME: GUANACO SPRINGER PATHOLOGY DATE OF : 48 REPORT #: [id number] PHYSICIAN: JARRETT BUCK PCP: OTHER PCP REPORT IS CONFIDENTIAL AND NOT TO BE RELEASED WITHOUT AUTHORIZATION [facility] [address] [place], [place] [address] Signed received in formalin and consists of one nguyen soft tissue fragment, 0.8 cm. Entirely submitted in (D1). VB (under the direct supervision of a pathologist) The Gross Description was prepared using a voice recognition system. The report was reviewed for accuracy; however, sound-alike word errors, addition and/or deletions may occur. If there is any question about this report, please contact Client Services. ADDITIONAL NOTES: Immunohistochemical and/or in situ hybridization studies if performed in this case included appropriate positive controls that reacted as expected. This test was developed and its performance characteristics determined by [facility]. It has not been cleared or approved by the U.S. Food and Drug Administration. The FDA has determined that such clearance or approval is not necessary. This test is used for clinical purposes. It should not be regarded as investigational or for research. [facility] is certified under the Clinical Laboratory Improvement Amendments of 1988 (CLIA) as qualified to perform high complexity clinical laboratory testing. PERFORMING LABORATORY: Technical component was performed by [facility], [address] [place] [id number] (CLIA# [id number]). Professional interpretation was performed by [facility] [address] [place] [phone] [id number] Diagnostician: Crystal Garza MD Pathologist Electronically Signed 05/13/2025 Copies: ~ PATIENT NAME: RACHEALGUANACO PAUL CARLIE PATHOLOGY DATE OF : 48 REPORT #: [id number] PHYSICIAN: JARRETT PATHOLOGY PCP: OTHER PCP REPORT IS CONFIDENTIAL AND NOT TO BE RELEASED WITHOUT AUTHORIZATION
== END 2025-05-11 12:35 | disposition home or self-care (01) ==
LOC: OPS 08:55 → DS 08:55 → OPS 10:30 → DS 12:00 → OPS 12:00 → DS 13:30
PROVIDERS: ATTEND Surgery
PROC: 0DBL8ZZ Excision of Transverse Colon, Via Natural or Artificial Opening Endoscopic (ICD-10-PCS; 2025-05-11)
PROC: 0DBM8ZZ Excision of Descending Colon, Via Natural or Artificial Opening Endoscopic (ICD-10-PCS; principal; 2025-05-11 10:30)
DX: K92.1 Melena (principal); D12.3 Benign neoplasm of transverse colon; D12.4 Benign neoplasm of descending colon; K63.5 Polyp of colon; I12.9 Hypertensive chronic kidney disease with stage 1 through stage 4 chronic kidney disease, or unspecified chronic kidney disease; N18.30 Chronic kidney disease, stage 3 unspecified; J44.9 Chronic obstructive pulmonary disease, unspecified; F43.10 Post-traumatic stress disorder, unspecified; E78.5 Hyperlipidemia, unspecified; Z86.0100 Personal history of colon polyps, unspecified; Z79.899 Other long term (current) drug therapy; Z88.5 Allergy status to narcotic agent; Z91.018 Allergy to other foods; K57.30 Diverticulosis of large intestine without perforation or abscess without bleeding
CPT/HCPCS: 00811; 88305; J0166; J2003; J2704; J7121